=== PATIENT | male | born 1975 | race Caucasian/White ===

== ENCOUNTER 2017-05-31 19:25 | Inpatient (IN) | payer OTHER ==
[~2017-05-31] VITALS: Ht 182.9 cm; Wt 128.0 kg
[~2017-05-31 19:25] MED LIST: BACTRIM,SEPT1 TABLET PO; CLEOCIN300 MG PO; FISH OIL300 MG PO; KEFLEX500 MG PO; NORCO 5/3251 TABLET PO; PERCOCET 5/31 TABLET PO
[2017-05-31 20:05] LABS: HEMATOCRIT 41.4 % (38.0-50.0); MCH 29.7 PG (29.0-34.0); MCHC 34.5 G/DL (30.0-36.0); MCV 86.1 FL (86-99); MEAN PLAT.VOLUME 8.5 uM^3 (9.0-12.4); PLATELET COUNT 275 K/uL (156-360); RBC DIS.WIDTH-SD 36.5 % (39-53); RED BLOOD COUNT 4.81 M/uL (4.00-5.50); WHITE BLOOD COUNT 11.3 K/uL (4.1-10.2)
[2017-05-31 20:14] LABS: CHLORIDE 103 mEq/L (99-109); POTASSIUM 4.2 mEq/L (3.7-5.4); SODIUM 136 mEq/L (136-147)
[2017-05-31 20:15] LABS: GLUCOSE 121 mg/dL (70-99)
[2017-05-31 20:17] LABS: ANION GAP 9 MEQ/L (2-14)
[2017-05-31 20:19] LABS: GFR ESTIMATE (CALCULATED) > 59 mL/min/
[2017-05-31 20:20] LABS: UREA NITROGEN (BUN) 6 mg/dL (9-23)
[2017-06-01] MEDS ORDERED: PROAIR HFA8.5 GM IH (00:39)
[2017-06-01] MEDS ORDERED: BENZONATATE200 MG PO (00:40)
[2017-06-01] MEDS ORDERED: PHENERGAN1.25 MG/ML PO (00:43)
[2017-06-01] MEDS ORDERED: TYLENOL SINUS1 EA16 PO (00:44)
[2017-06-01 00:56] VITALS: BP 146/87
[2017-06-01 03:15] LABS: EOSINOPHIL (%) 3.4 % (0-5); EOSINOPHIL COUNT 0.3 K/uL (0-0.3); HEMATOCRIT 36.3 % (38.0-50.0); IMMATURE GRANULOCYTE (%) 0.1 % (0.0-0.7); INSTRUMENT ABS NEUTROPHIL CT 3.9 K/uL; LYMPHOCYTE COUNT 2.9 K/uL (1.0-2.8); MCH 29.9 PG (29.0-34.0); MCHC 34.2 G/DL (30.0-36.0); MCV 87.5 FL (86-99); MEAN PLAT.VOLUME 8.7 uM^3 (9.0-12.4); MONOCYTE (%) 9.9 % (3-12); MONOCYTE COUNT 0.8 K/uL (0-0.8); NEUTROPHIL (%) 50.2 % (45-76); NEUTROPHIL COUNT 3.9 K/uL (1.8-6.4); PLATELET COUNT 224 K/uL (156-360); RBC DIS.WIDTH-CV 12.2 % (11.8-14.6); RBC DIS.WIDTH-SD 38.5 % (39-53); RED BLOOD COUNT 4.15 M/uL (4.00-5.50); WHITE BLOOD COUNT 7.9 K/uL (4.1-10.2)
[2017-06-01 08:15] VITALS: BP 123/73
[2017-06-01 11:52] VITALS: BP 130/84
[2017-06-01 15:12] VITALS: BP 146/78
[2017-06-01 20:15] VITALS: BP 151/70
[2017-06-02 01:11] VITALS: BP 141/84
[2017-06-02 05:38] VITALS: BP 135/71
[2017-06-02 08:00] VITALS: BP 135/88
[2017-06-02 11:37] VITALS: BP 130/84
[2017-06-02 16:13] VITALS: BP 134/82
[2017-06-02 23:42] VITALS: BP 129/68
[2017-06-03 08:48] VITALS: BP 139/90
[2017-06-03] MEDS ORDERED: ENDOCET 5-3251 EACH PO (10:39)
[2017-06-03] MEDS ORDERED: CEFDINIR300 MG PO (10:39)
[2017-06-03] MEDS ORDERED: PREDNISONE10 MG PO (10:40)
== END 2017-06-03 11:18 | disposition home or self-care (01) | DRG 190 ==
LOC: EME 19:25 → EDOF 22:41 → 5SOUTH 22:41 → ENRESERV 22:42 → 5SOUTH 06-01 00:51
PROVIDERS: Emergency Medicine; Physician Assistant Medical
DX: J44.0 Chronic obstructive pulmonary disease with (acute) lower respiratory infection (principal); J18.0 Bronchopneumonia, unspecified organism; J44.1 Chronic obstructive pulmonary disease with (acute) exacerbation; R13.10 Dysphagia, unspecified; R51 Headache; R01.1 Cardiac murmur, unspecified; R00.0 Tachycardia, unspecified; R49.0 Dysphonia; M16.10 Unilateral primary osteoarthritis, unspecified hip; M47.892 Other spondylosis, cervical region; E66.9 Obesity, unspecified; Z68.38 Body mass index [BMI] 38.0-38.9, adult; Z87.891 Personal history of nicotine dependence; Z82.49 Family history of ischemic heart disease and other diseases of the circulatory system; Z83.3 Family history of diabetes mellitus
CPT/HCPCS: 71020; 71250; 80048; 83605; 85025; 85027; 87040; 93005; 94640; 94640 76; 94760; 94799; 99202; 99281; 99285; J0456; J0696; J1650; J1885; J2920; J2930; J7030; J7050; J7120